=== PATIENT | female | born 1930 | race African-American/Black ===

== ENCOUNTER 2016-07-07 19:02 | Inpatient (IN) | payer MEDICARE, MEDICAID ==
[~2016-07-07] VITALS: Ht 152.4 cm; Wt 70.3 kg
[~2016-07-07 19:02] MED LIST: ATEN50TA PO; LISI40TA4 PO; MULT-1146 PO
[2016-07-07 19:53] LABS: HEMATOCRIT. 36.4 % (36.0-48.0); MEAN CORPUSCULAR HGB CONC 32.9 g/dL (31.0-37.0); MEAN CORPUSCULAR VOLUME 78.9 fL (81.0-99.0); MEAN PLATELET VOLUME 7.5 fl (7.4-10.4); PLATELET 232 x1000/uL (130-400); RED BLOOD CELL COUNT 4.61 mill/uL (4.2-5.4); RED CELL DISTRIBUTION WIDTH 14.6 % (11.6-14.6); WHITE BLOOD COUNT 12.8 x1000/uL (4.5-11.0)
[2016-07-07 19:54] LABS: DIFFERENTIAL COMMENT 1
[2016-07-07 20:02] LABS: PARTIAL THROMBOPLASTIN TIME 23.3 sec (24.0-34.0); PROTHROMBIN TIME 10.4 sec
[2016-07-07 20:05] LABS: ALBUMIN 3.5 g/dL (3.4-5.0); ANION GAP 14; CARBON DIOXIDE 30 mEq/L (21-32); CHLORIDE 104 mEq/L (98-107); INDEX HEMOLYSI 1 (1-3); INDEX ICTERIC 1 (1-4); INDEX LIPEMIC 1 (1-3); LIPASE 152 IU/L (73-393); PLATELET ESTIMATE NORMAL; UREA NITROGEN BLOOD 23 mg/dL (7-21)
[2016-07-07 20:09] LABS: ALANINE AMINOTRANSFERASE 23 IU/L (13-61); eGFR 57 mL/min (>60)
[2016-07-07 20:10] LABS: TROPONIN I 0.07 ng/mL (0.00-0.04)
[2016-07-07 23:45] VITALS: BP 158/93
[2016-07-08] MEDS ORDERED: CLONIDINE 0.1MG TABLET PO PRN (01:00)
[2016-07-08] MEDS ORDERED: ACETAMINOPHEN 325MG TABLET PO PRN (01:00)
[2016-07-08] MEDS ORDERED: LACTULOSE 20G/30ML UDC PO ONE (02:00)
[2016-07-08] MEDS ORDERED: LEVOFLOXACIN 500MG TABLET PO ONE (02:00)
[2016-07-08 04:00] VITALS: BP 163/74
[2016-07-08 05:34] LABS: CLARITY URINE CLEAR (CLEAR); COLOR URINE YELLOW (YELLOW); GLUCOSE URINE NEGATIVE (NEGATIVE); KETONES URINE NEGATIVE (NEGATIVE); LEUKOCYTE ESTERASE URINE TRACE (NEGATIVE); NITRITE URINE NEGATIVE (NEGATIVE); OCCULT BLOOD URINE NEGATIVE (NEGATIVE); PH URINE 6.5 (4.5-8.0); PROTEIN URINE NEGATIVE (NEGATIVE); SPECIFIC GRAVITY URINE 1.013 (1.005-1.030)
[2016-07-08 06:23] LABS: ANION GAP 13; CARBON DIOXIDE 28 mEq/L (21-32); CHLORIDE 106 mEq/L (98-107); CREATINE KINASE 36 IU/L (26-192); CREATINE KINASE MB FRACTION 1.5 ng/mL (0.5-3.6); HDL CHOLESTEROL 78 mg/dL (40-59); INDEX HEMOLYSI 2 (1-3); INDEX ICTERIC 1 (1-4); INDEX LIPEMIC 1 (1-3); LDL CHOLESTEROL 44 mg/dL (5-100); TRIGLYCERIDE 51 mg/dL (0-150); UREA NITROGEN BLOOD 22 mg/dL (7-21); eGFR > 60 mL/min (>60)
[2016-07-08 06:35] LABS: BASOPHILS % 0.3 % (0.0-2.0); DIFFERENTIAL COMMENT 0; EOSINOPHILS % 0.9 % (0.0-5.0); HEMATOCRIT. 30.8 % (36.0-48.0); HEMOGLOBIN. 10.2 g/dL (12.0-16.0); LYMPHOCYTES % 21.3 % (20.0-50.0); MEAN CORPUSCULAR HEMOGLOBIN 26.4 pg (28.0-32.0); MEAN CORPUSCULAR HGB CONC 33.2 g/dL (31.0-37.0); MEAN CORPUSCULAR VOLUME 79.7 fL (81.0-99.0); MEAN PLATELET VOLUME 8.3 fl (7.4-10.4); NEUTROPHILS % 69.5 % (40.0-76.0); PLATELET 183 x1000/uL (130-400); RED BLOOD CELL COUNT 3.87 mill/uL (4.2-5.4); RED CELL DISTRIBUTION WIDTH 14.3 % (11.6-14.6); WHITE BLOOD COUNT 12.4 x1000/uL (4.5-11.0)
[2016-07-08 06:54] LABS: BACTERIA URINE TRACE; RBC URINE 0-2 /hpf (0-2); SQUAMOUS EPITHELIAL CELL URINE RARE /lpf (RARE/1+)
[2016-07-08 08:00] VITALS: BP 159/80
[2016-07-08] MEDS: LISINOPRIL 40MG TABLET PO SCH (10:19)
[2016-07-08] MEDS: ATENOLOL 50 MG TABLET PO SCH (10:20)
[2016-07-08] MEDS: LEVOFLOXACIN 250MG TABLET PO SCH (10:20)
[2016-07-08] MEDS: ASPIRIN 81MG TABLET PO SCH (10:20)
[2016-07-08 12:00] VITALS: BP 137/68
[2016-07-08 16:00] VITALS: BP 144/66
[2016-07-08] MEDS: ENOXAPARIN 40MG/0.4ML SYR SUBCUT SCH (19:09)
[2016-07-08 20:00] VITALS: BP 149/89
[2016-07-08 20:09] LABS: CREATINE KINASE MB FRACTION 1.4 ng/mL (0.5-3.6); TROPONIN I 0.07 ng/mL (0.00-0.04)
[2016-07-09] VITALS (7 sets, daily range): BP systolic 136–152; BP diastolic 71–89
[2016-07-09] MEDS: ATENOLOL 50 MG TABLET PO SCH (09:52)
[2016-07-09] MEDS: LISINOPRIL 40MG TABLET PO SCH (09:52)
[2016-07-09] MEDS: ASPIRIN 81MG TABLET PO SCH (09:52)
[2016-07-09] MEDS: ENOXAPARIN 40MG/0.4ML SYR SUBCUT SCH (09:53)
[2016-07-09] MEDS: LEVOFLOXACIN 250MG TABLET PO SCH (10:37)
[2016-07-09 19:50] LABS: CREATINE KINASE MB FRACTION 0.8 ng/mL (0.5-3.6); TROPONIN I 0.04 ng/mL (0.00-0.04)
[2016-07-10] VITALS: BP 109/57
[2016-07-10 04:00] VITALS: BP 125/70
[2016-07-10 06:11] LABS: BASOPHILS % 0.4 % (0.0-2.0); DIFFERENTIAL COMMENT 0; EOSINOPHILS % 1.9 % (0.0-5.0); HEMATOCRIT. 30.9 % (36.0-48.0); HEMOGLOBIN. 10.3 g/dL (12.0-16.0); LYMPHOCYTES % 19.9 % (20.0-50.0); MEAN CORPUSCULAR HEMOGLOBIN 26.5 pg (28.0-32.0); MEAN CORPUSCULAR HGB CONC 33.4 g/dL (31.0-37.0); MEAN CORPUSCULAR VOLUME 79.5 fL (81.0-99.0); MONOCYTES % 9.6 % (2.0-8.0); NEUTROPHILS % 68.2 % (40.0-76.0); PLATELET 172 x1000/uL (130-400); RED BLOOD CELL COUNT 3.89 mill/uL (4.2-5.4); RED CELL DISTRIBUTION WIDTH 14.8 % (11.6-14.6); WHITE BLOOD COUNT 10.5 x1000/uL (4.5-11.0)
[2016-07-10 07:11] LABS: CALCIUM 9.4 mg/dL (8.5-10.1)
[2016-07-10 08:55] VITALS: BP 129/81
[2016-07-10] MEDS: ASPIRIN 81MG TABLET PO SCH (09:32)
[2016-07-10] MEDS: LISINOPRIL 40MG TABLET PO SCH (09:33)
[2016-07-10] MEDS: ENOXAPARIN 40MG/0.4ML SYR SUBCUT SCH (09:33)
[2016-07-10] MEDS: ATENOLOL 50 MG TABLET PO SCH (09:33)
[2016-07-10] MEDS: LEVOFLOXACIN 250MG TABLET PO SCH (09:35)
[2016-07-10 12:00] VITALS: BP 121/69
[2016-07-10 16:00] VITALS: BP 114/76
== END 2016-07-10 20:30 | DRG 683 ==
LOC: ER 19:16 → OBSVTOIN 20:58 → INTOOBSV 20:58 → 6WST 20:58
PROVIDERS: ADMIT Internal Medicine; ATTEND Internal Medicine
DX: N17.9 Acute kidney failure, unspecified (principal); R65.10 Systemic inflammatory response syndrome (SIRS) of non-infectious origin without acute organ dysfunction; R53.1 Weakness; R62.7 Adult failure to thrive; E11.9 Type 2 diabetes mellitus without complications; I10 Essential (primary) hypertension; R74.8 Abnormal levels of other serum enzymes; Z60.2 Problems related to living alone; Z79.899 Other long term (current) drug therapy; Z88.0 Allergy status to penicillin; Z88.8 Allergy status to other drugs, medicaments and biological substances; Z91.013 Allergy to seafood
CPT/HCPCS: 36415; 71010; 80048; 80053; 80061; 81001; 82550; 82553; 82962; 83690; 83880; 84484; 85025; 85610; 85730; 87040; 87086; 93005; 93970; 97116; 97162; 97165; 99285; J1650

== ENCOUNTER 2016-09-17 09:36 | Inpatient (IN) | payer MEDICARE, MEDICAID ==
[~2016-09-17] VITALS: Ht 167.6 cm; Wt 76.2 kg
[2016-09-17] MEDS ORDERED: IPRATROPIUM BROMIDE (0.02%) 0.5MG/2.5ML NEB HHN STA (09:54)
[2016-09-17] MEDS ORDERED: METHYLPREDNISOLONE SOD SUCC 125 MG/2 ML VIAL IV STA (09:54)
[2016-09-17] MEDS ORDERED: ALBUTEROL (0.083%) 2.5MG/3ML NEB HHN STA (09:54)
[2016-09-17 10:38] LABS: BG BASE EXCESS -0.3 mmol/L (-2.0-2.0); BG CARBOXYHEMOGLOBIN 0.6 % (0.5-1.5); BG DEOXYHEMOGLOBIN 3.3 % (0.0-5.0); BG FRACTION INSPIRED OXYGEN 21; BG HCO3 ACT 22.8 mmol/L (22.0-26.0); BG METHEMOGLOBIN 0.2 % (0.0-1.5); BG OXYGEN SATURATION 96.7 % (92.0-98.5); BG OXYHEMOGLOBIN 95.9 % (94.0-97.0); BG PCO2 32.5 mmHg (35.0-45.0); BG PH 7.464 (7.350-7.450); BG PO2 89.2 mmHg (75.0-100.0); BG SAMPLE SITE LEFT BRACHIAL; BG TOTAL HEMOGLOBIN 12.4 g/dL (12.0-18.0); BG VENT MODE ROOM AIR
[2016-09-17 10:38] LABS: BASOPHILS % 0.8 % (0.0-2.0); EOSINOPHILS % 4.8 % (0.0-5.0); HEMATOCRIT. 35.4 % (36.0-48.0); HEMOGLOBIN. 11.6 g/dL (12.0-16.0); LYMPHOCYTES % 21.8 % (20.0-50.0); MEAN CORPUSCULAR HEMOGLOBIN 25.6 pg (28.0-32.0); MEAN CORPUSCULAR VOLUME 77.8 fL (81.0-99.0); MEAN PLATELET VOLUME 8.3 fl (7.4-10.4); MONOCYTES % 8.3 % (2.0-8.0); NEUTROPHILS % 64.3 % (40.0-76.0); PLATELET 233 x1000/uL (130-400); RED BLOOD CELL COUNT 4.54 mill/uL (4.2-5.4); RED CELL DISTRIBUTION WIDTH 14.9 % (11.6-14.6)
[2016-09-17 10:45] LABS: CHLORIDE 107 mEq/L (98-107)
[2016-09-17 10:46] LABS: PROTHROMBIN TIME 10.4 sec
[2016-09-17 10:55] LABS: CARBON DIOXIDE 27 mEq/L (21-32); TROPONIN I < 0.02 ng/mL (0.00-0.04)
[2016-09-17] MEDS ORDERED: HYDR-4134 PO (13:27)
[2016-09-17] MEDS ORDERED: IPRATROPIUM/ALBUTEROL 0.5-3(2.5)MG/3ML NEB INH PRN (17:00)
[2016-09-17] MEDS ORDERED: ONDANSETRON HCL 4MG/2ML VIAL IV PRN (17:00)
[2016-09-17] MEDS ORDERED: HYDROCODONE/ACETAMINOPHEN 5/325MG TABLET PO PRN (17:00)
[2016-09-17] MEDS ORDERED: CLONIDINE 0.1MG TABLET PO PRN (17:00)
[2016-09-17 18:30] VITALS: BP 183/104
[2016-09-17 19:25] VITALS: BP 196/84
[2016-09-17] MEDS: ENOXAPARIN 40MG/0.4ML SYR SUBCUT SCH (20:17)
[2016-09-17] MEDS: ACETAMINOPHEN 325MG TABLET PO PRN (20:31)
[2016-09-17] MEDS ORDERED: LEVOFLOXACIN 500MG PREMIX 100 ML IV SCH (21:00)
[2016-09-18] VITALS: BP 136/84
[2016-09-18 00:07] LABS: CARBON DIOXIDE 23 mEq/L (21-32); CHLORIDE 107 mEq/L (98-107); CREATINE KINASE 59 IU/L (26-192); TROPONIN I < 0.02 ng/mL (0.00-0.04)
[2016-09-18 04:00] VITALS: BP 141/69
[2016-09-18 08:00] VITALS: BP 150/71
[2016-09-18] MEDS: ACETAMINOPHEN 325MG TABLET PO PRN (11:41)
[2016-09-18 12:00] VITALS: BP 174/74
[2016-09-18] MEDS: HYDRALAZINE HCL 25MG TABLET PO SCH ×2 (13:08→17:49)
[2016-09-18] MEDS: LISINOPRIL 40MG TABLET PO SCH (13:08)
[2016-09-18 16:00] VITALS: BP 132/61
[2016-09-18 20:00] VITALS: BP 149/69
[2016-09-18] MEDS: METHYLPREDNISOLONE SOD SUCC 40 MG/ML VIAL IV SCH (21:28)
[2016-09-18] MEDS: ENOXAPARIN 40MG/0.4ML SYR SUBCUT SCH (21:28)
[2016-09-19] VITALS: BP 148/70
[2016-09-19 04:00] VITALS: BP 154/75
[2016-09-19 08:00] VITALS: BP 146/74
[2016-09-19] MEDS: LISINOPRIL 40MG TABLET PO SCH (08:28)
[2016-09-19] MEDS: HYDRALAZINE HCL 25MG TABLET PO SCH (08:28)
[2016-09-19] MEDS ORDERED: ATENOLOL 50 MG TABLET PO SCH (09:00)
[2016-09-19] MEDS: METHYLPREDNISOLONE SOD SUCC 40 MG/ML VIAL IV SCH (11:19)
[2016-09-19 11:50] VITALS: BP 140/78
[2016-09-19 12:00] VITALS: BP 142/80
== END 2016-09-19 12:50 | disposition home or self-care (01) | DRG 189 ==
LOC: ER 09:36 → EDBEDREQSVC 15:35 → EDBEDREQ 15:35 → EDBEDREQSVC 17:02 → ENRESERV 17:07 → INTOOBSV 19:06 → OBSVTOIN 19:06 → 7WST 19:06
PROVIDERS: ADMIT Internal Medicine; ATTEND Internal Medicine
DX: J96.00 Acute respiratory failure, unspecified whether with hypoxia or hypercapnia (principal); J44.1 Chronic obstructive pulmonary disease with (acute) exacerbation; I16.0 Hypertensive urgency; E11.9 Type 2 diabetes mellitus without complications; I10 Essential (primary) hypertension; Z87.891 Personal history of nicotine dependence; Z88.0 Allergy status to penicillin; Z91.013 Allergy to seafood
CPT/HCPCS: 36415; 36600; 71010; 80048; 80053; 82375; 82550; 82805; 82962; 83036; 83605; 83690; 83880; 84484; 85025; 85610; 87040; 93005; 94640; 96374; 99291; J1650; J1956; J2920; J2930; J7040; J7611

== ENCOUNTER 2016-12-11 13:49 | Emergency (ER) | payer MEDICARE, MEDICAID ==
[~2016-12-11] VITALS: Ht 165.1 cm; Wt 68.0 kg
[~2016-12-11 13:49] MED LIST changes: +HYDR-4134 PO
[2016-12-11] MEDS ORDERED: ONDANSETRON HCL 4MG/2ML VIAL IV STA (14:09)
[2016-12-11] MEDS ORDERED: HYDRALAZINE 20MG/ML VIAL IV ONE (15:00)
[2016-12-11 15:24] LABS: BASOPHILS % 0.7 % (0.0-2.0); EOSINOPHILS % 0.2 % (0.0-5.0); HEMATOCRIT. 37.9 % (36.0-48.0); HEMOGLOBIN. 12.5 g/dL (12.0-16.0); LYMPHOCYTES % 7.4 % (20.0-50.0); MEAN CORPUSCULAR HEMOGLOBIN 25.5 pg (28.0-32.0); MEAN CORPUSCULAR VOLUME 77.3 fL (81.0-99.0); MEAN PLATELET VOLUME 8.1 fl (7.4-10.4); MONOCYTES % 2.1 % (2.0-8.0); NEUTROPHILS % 89.6 % (40.0-76.0); PLATELET 247 x1000/uL (130-400); RED CELL DISTRIBUTION WIDTH 15.1 % (11.6-14.6)
[2016-12-11 15:28] LABS: CHLORIDE 104 mEq/L (98-107)
[2016-12-11 15:30] LABS: PARTIAL THROMBOPLASTIN TIME 24.3 sec (23.4-31.0); PROTHROMBIN TIME 10.5 sec (9.4-11.6)
[2016-12-11 15:35] LABS: CARBON DIOXIDE 28 mEq/L (21-32)
[2016-12-11 15:39] LABS: CREATINE KINASE 64 IU/L (26-192); CREATINE KINASE MB FRACTION 0.5 ng/mL (0.5-3.6); TROPONIN I < 0.02 ng/mL (0.00-0.04)
[2016-12-11] MEDS ORDERED: SODIUM CHLORIDE 0.9% 500 ML IV ONE (16:10)
[2016-12-11 16:38] LABS: CLARITY URINE CLEAR (CLEAR); COLOR URINE YELLOW (YELLOW); GLUCOSE URINE NEGATIVE (NEGATIVE); KETONES URINE NEGATIVE (NEGATIVE); LEUKOCYTE ESTERASE URINE NEGATIVE (NEGATIVE); NITRITE URINE NEGATIVE (NEGATIVE); OCCULT BLOOD URINE NEGATIVE (NEGATIVE); PROTEIN URINE 1+ (NEGATIVE); SPECIFIC GRAVITY URINE 1.016 (1.005-1.030); UROBILINOGEN URINE 0.2 E.U./dL (0.2-1.0)
[2016-12-11 17:44] VITALS: BP 178/78
== END 2016-12-11 17:46 | disposition home or self-care (01) ==
LOC: ER 13:49
DX: T40.4X5A Adverse effect of other synthetic narcotics, initial encounter (principal); R11.2 Nausea with vomiting, unspecified; I16.0 Hypertensive urgency; I10 Essential (primary) hypertension; J44.9 Chronic obstructive pulmonary disease, unspecified; E11.9 Type 2 diabetes mellitus without complications; Z88.0 Allergy status to penicillin; Y92.89 Other specified places as the place of occurrence of the external cause; Z91.013 Allergy to seafood
CPT/HCPCS: 36415; 71010; 80053; 81001; 82550; 82553; 83690; 84484; 85025; 85610; 85730; 93005; 96374; 96375; 99285; J0360; J2405; J7030; J7040